=== PATIENT | female | born 1940 | race Caucasian/White ===

== ENCOUNTER 2017-02-12 16:13 | Emergency (ER) | payer MEDICARE, OTHER ==
[~2017-02-12] VITALS: Ht 160 cm; Wt 64.5 kg
[~2017-02-12 16:13] MED LIST: ACET1TAB40 PO; ALBU8.5H3 INH; ANAS1TAB PO; BUDE6HFA INHALATION; CALC500T12 PO; CHOL100062 PO; DOXA1TAB PO; ESOM40CA PO; FAMO-18 PO; FLUT9.9S NASAL; HYD25 PO; IBUP400T22 PO; LORA1TAB PO; MECL-77 PO; MELO-110 PO; METH10TA2 PO; NAPR-260 PO
[2017-02-12 16:29] VITALS: Ht 160 cm; Wt 64.5 kg
[2017-02-12] MEDS ORDERED: NAPR-688 PO (17:02)
--- NOTE | 2017-02-12 17:04 | ERD ---
ER Documentation Chief Complaint Date/Time DATE: 02/12/17 TIME: 17:03 Chief Complaint pedersen, facial numbness HPI 76-year-old woman complains of paresthesias to the right side of face 2 days. She denies headache or blurry vision, no weakness in her arms or legs, no chest pain or shortness of breath. Patient denies trauma. ROS All systems reviewed and are negative except as per history of present illness. Medications Home Meds Active Scripts Naproxen* (Naproxen*) 500 Mg Tablet, 500 MG PO BID Y for PAIN AND/OR INFLAMMATION, #30 TAB Prov:JOSUE JACKOSN MD 02/12/17 Hydrochlorothiazide* (Hydrochlorothiazide*) 25 Mg Tab, 25 MG PO DAILY, #30 TAB Prov:PURVI PURDY DO 12/20/15 Reported Medications Fluticasone Propionate (Flonase Allergy Relief) 9.9 Ml [place].susp, 1 SPRAY NASAL BID, #1 BOTTLE TO EACH NOSTRIL 02/12/17 Docusate Sodium* (Docusate Sodium*) 100 Mg Capsule, 100 MG PO BID Y for CONSTIPATION, #60 CAP 02/12/17 Metoprolol Succinate* (Toprol XL*) 25 Mg Tab.sr.24h, 25 MG PO DAILY, #30 TAB 02/12/17 Cholecalciferol* (Vitamin D3*) 1,000 Unit Tablet, 1000 UNIT PO DAILY, TAB 12/20/15 Calcium Carbonate* ([place]-500*) 1 Tab Tablet, 1 TAB PO BID, TAB 12/20/15 Meloxicam* (Mobic*) 15 Mg Tablet, 15 MG PO DAILY, #30 TAB 12/20/15 Fluticasone Propionate (Flonase Allergy Relief) 9.9 Ml [place].susp, 1 SPRAY NASAL DAILY, #1 BOTTLE TO EACH NOSTRIL 08/27/15 Anastrozole* (Arimidex*) 1 Mg Tablet, 1 MG PO DAILY, #30 TAB 08/27/15 Discontinued Reported Medications Methadone Hcl* (Methadone*) 10 Mg Tab, 60 MG PO DAILY, TAB 03/09/16 Meclizine Hcl* (Meclizine Hcl*) 25 Mg Tablet, 25 MG PO DIZZINESS, TAB 12/20/15 Doxazosin Mesylate* (Doxazosin Mesylate*) 1 Mg Tablet, 1 MG PO HS, TAB 12/20/15 Albuterol Sulfate* (Proair HFA*) 8.5 Gm Hfa.aer.ad, 2 PUFF INH Q4H Y for WHEEZING AND SOB, #1 INHALER 12/20/15 Esomeprazole Mag Trihydrate (Nexium) 40 Mg Capsule.dr, 40 MG PO DAILY, #30 08/27/15 Lorazepam* (Lorazepam*) 1 Mg Tablet, 1 MG PO HS Y for INSOMNIA, #30 TAB 08/27/15 Budesonide-Formoterol Fumarate* (Symbicort*) 160-4.5 Hfa.aer.ad, 2 PUFF INHALATION BID, #1 EACH 08/27/15 Discontinued Scripts Ibuprofen* (Motrin*) 400 Mg Tab, 400 MG PO Q6H Y for PAIN AND OR ELEVATED TEMP, #20 TAB Prov:JAMEL LIU NP 03/09/16 Naproxen* (Naprosyn*) 500 Mg Tablet, 500 MG PO BID Y for PAIN AND/OR INFLAMMATION, #30 TAB Prov:JOSUE JACKSON MD 10/02/15 Acetaminophen-Codeine* (Acetaminophen-Cod #3*) 300-30 Mg Tab, 1 TAB PO Q4H Y for PAIN, #14 TAB Prov:ERIC MAYO MD 09/06/15 Famotidine* (Pepcid*) 20 Mg Tablet, 20 MG PO BID, #30 TAB Prov:ERIC MAYO MD 09/06/15 Allergies Allergies: Coded Allergies: Penicillins (Unverified Allergy, Mild, rash, 02/12/17) PMhx/Soc Chronic pain syndrome, chronic dizziness, anemia, dyslipidemia, asthma History of Surgery: Yes (C SECTION , left breast biopsy and lymphnodectomy 11/03 ) Anesthesia Reaction: No Hx Neurological Disorder: No Hx Respiratory Disorders: Yes (ASTHMA) Hx Cardiac Disorders: Yes (HIGH CHOLESTEROL ) Hx Psychiatric Problems: No Hx Miscellaneous Medical Probl: Yes (VERICOSE VEINS, lower right abdominal hernia ) Hx Alcohol Use: No Hx Substance Use: No Hx Tobacco Use: Yes (2-3 cigarettes/ day) Smoking Status: Never smoker FmHx Family History: No diabetes Physical Exam Vitals Vital Signs Date Time Temp Pulse Resp B/P Pulse Ox O2 Delivery O2 Flow Rate FiO2 02/12/17 17:45 76 18 108/60 97 02/12/17 16:29 98.1 78 18 111/64 97 Physical Exam GENERAL: Well-developed, well-nourished, well-hydrated, in no apparent distress , looks nontoxic in appearance HEENT: Moist mucous membranes, pink conjunctiva, no cervical spine tenderness or step-off deformities, no goiter, no jaundice or icterus, extraocular movements intact without pain. No submandibular induration, and no pharyngeal erythema NEURO: Alert and oriented 3, cranial nerves II through XII intact bilaterally, pupils equal round reactive to light, no focal deficits or facial asymmetry, sensation intact distally Strength 5/5 in upper and lower extremities bilaterally CARDIAC: Regular rate and rhythm, no murmurs rubs or gallops LUNGS: Clear bilaterally no wheezing crackles or stridor ABDOMEN: Soft nontender, no guarding, no rigidity, no rebound, no psoas sign no obturator sign. Normoactive bowel sounds SKIN: Warm and dry to touch, no abrasions, contusions, or hematomas, no lacerations, no ecchymosis, no target lesions, and without ulcers EXTREMITIES: No clubbing cyanosis or edema, calves are bilaterally symmetrical, no Homans sign, no popliteal cord sign. Distal pulses equal and bilateral PSYCH: Normal affect without agitation or irritability Procedures/MDM Patient was placed on pmo consultant rhythm strip revealed a sinus rhythm at about 70 bpm with upright P and T waves. Patient was afebrile. I provided reassurance to the patient regarding her paresthesias including over the scalp and right face. Her neurologic exam was completely normal here including distal sensation and motor exam. I ordered CT scan of the brain although patient could not wait and decided to leave the emergency department AGAINST MEDICAL ADVICE despite my and the nurses insistence. Differential diagnoses considered, included but not limited to acute coronary syndrome, pulmonary embolism, aortic dissection, abdominal aortic aneurysm, sepsis, stroke, meningitis, encephalitis, pneumonia, appendicitis, cholecystitis , bowel obstruction, pyelonephritis, nephrolithiasis, cystitis, as well as metabolic, hematologic, and electrolyte abnormalities. As well as abscess, cellulitis, fractures, and dislocations. Departure Diagnosis: Primary Impression: Facial paresthesia Additional Impression: Left against medical advice Condition: Serious Patient Instructions: JOSUE Khan MD Feb 12, 2017 17:04
[2017-02-12] MEDS ORDERED: DOCU-159 PO (17:35)
[2017-02-12] MEDS ORDERED: FLUT9.9S NASAL (17:35)
[2017-02-12] MEDS ORDERED: METO25TA7 PO (17:35)
[2017-02-12 17:45] VITALS: BP 108/60; PULSE 76; RESP 18
== END 2017-02-12 18:14 | disposition left against medical advice (07) ==
LOC: E/R 16:13
DX: R20.2 Paresthesia of skin (principal); J45.909 Unspecified asthma, uncomplicated; Z87.891 Personal history of nicotine dependence
CPT/HCPCS: 99283

== ENCOUNTER 2017-02-13 16:06 | Emergency (ER) | payer MEDICARE, OTHER ==
[~2017-02-13] VITALS: Ht 152.4 cm; Wt 64.5 kg
[~2017-02-13 16:06] MED LIST changes: -ACET1TAB40 PO; -ALBU8.5H3 INH; -BUDE6HFA INHALATION; +DOCU-159 PO; -DOXA1TAB PO; -ESOM40CA PO; -FAMO-18 PO; -IBUP400T22 PO; -LORA1TAB PO; -MECL-77 PO; -METH10TA2 PO; +METO25TA7 PO; -NAPR-260 PO; +NAPR-688 PO
[2017-02-13 16:17] VITALS: Ht 152.4 cm; Wt 64.5 kg
--- NOTE | 2017-02-13 17:37 | RADRPT ---
PROCEDURE: CT Brain without contrast. CLINICAL INDICATION: Paresthesia TECHNIQUE: A CT of the brain was performed on a [employer] 64-slice CT scanner utilizing axial imaging from the skull base through the vertex without IV contrast. Multiplanar reformatted images were made. Images were reviewed on a PACS workstation. The CTDIvol is 44.3 mGy and the DLP is 720 mGycm. COMPARISON: March 09, 2016 FINDINGS: There is no intracranial hemorrhage, mass effect, or midline shift. No extra-axial fluid collection is seen. There is cerebral volume loss with prominence of the cerebral sulci and lateral ventricles . [place]-white matter differentiation is preserved. The visualized paranasal sinuses and osseous struc tures are grossly unremarkable. IMPRESSION: 1. No evidence of acute intracranial pathology. 2. Stable diffuse cerebral volume loss. Physician Shashi Date Time Electronically viewed and signed by Physician Shashi on 02/13/2017 17:36 ML/
--- NOTE | 2017-02-13 18:33 | ERD ---
ER Documentation Chief Complaint Date/Time DATE: 02/13/17 TIME: 18:28 Chief Complaint [address] for [address], c/o same, facial umbness, pedersen x 3 days HPI 76-year-old female with a history of hypertension, breast cancer on Arimidex, chronic pain and opiate dependence presents the ED complaining of a 3 day history of right-sided facial numbness which seems to be improving. She was seen in the ED yesterday for similar symptoms but did not want to wait for a CT brain and now returns for the imaging study. Denies headache, visual changes or focal weakness. Denies chest pain or palpitations. No shortness of breath or cough. No abdominal pain, nausea vomiting. No fevers or chills. ROS All systems reviewed and are negative except as per history of present illness. Medications Home Meds Active Scripts Naproxen* (Naproxen*) 500 Mg Tablet, 500 MG PO BID Y for PAIN AND/OR INFLAMMATION, #30 TAB Prov:JOSUE JACKSON MD 02/12/17 Hydrochlorothiazide* (Hydrochlorothiazide*) 25 Mg Tab, 25 MG PO DAILY, #30 TAB Prov:PURVI PURDY DO 12/20/15 Reported Medications Fluticasone Propionate (Flonase Allergy Relief) 9.9 Ml [place].susp, 1 SPRAY NASAL BID, #1 BOTTLE TO EACH NOSTRIL 02/12/17 Docusate Sodium* (Docusate Sodium*) 100 Mg Capsule, 100 MG PO BID Y for CONSTIPATION, #60 CAP 02/12/17 Metoprolol Succinate* (Toprol XL*) 25 Mg Tab.sr.24h, 25 MG PO DAILY, #30 TAB 02/12/17 Cholecalciferol* (Vitamin D3*) 1,000 Unit Tablet, 1000 UNIT PO DAILY, TAB 12/20/15 Calcium Carbonate* ([place]-500*) 1 Tab Tablet, 1 TAB PO BID, TAB 12/20/15 Meloxicam* (Mobic*) 15 Mg Tablet, 15 MG PO DAILY, #30 TAB 12/20/15 Anastrozole* (Arimidex*) 1 Mg Tablet, 1 MG PO DAILY, #30 TAB 08/27/15 Discontinued Reported Medications Fluticasone Propionate (Flonase Allergy Relief) 9.9 Ml [place].susp, 1 SPRAY NASAL DAILY, #1 BOTTLE TO EACH NOSTRIL 08/27/15 Methadone Hcl* (Methadone*) 10 Mg Tab, 60 MG PO DAILY, TAB 03/09/16 Meclizine Hcl* (Meclizine Hcl*) 25 Mg Tablet, 25 MG PO DIZZINESS, TAB 12/20/15 Doxazosin Mesylate* (Doxazosin Mesylate*) 1 Mg Tablet, 1 MG PO HS, TAB 12/20/15 Albuterol Sulfate* (Proair HFA*) 8.5 Gm Hfa.aer.ad, 2 PUFF INH Q4H Y for WHEEZING AND SOB, #1 INHALER 12/20/15 Esomeprazole Mag Trihydrate (Nexium) 40 Mg Capsule.dr, 40 MG PO DAILY, #30 08/27/15 Lorazepam* (Lorazepam*) 1 Mg Tablet, 1 MG PO HS Y for INSOMNIA, #30 TAB 08/27/15 Budesonide-Formoterol Fumarate* (Symbicort*) 160-4.5 Hfa.aer.ad, 2 PUFF INHALATION BID, #1 EACH 08/27/15 Discontinued Scripts Ibuprofen* (Motrin*) 400 Mg Tab, 400 MG PO Q6H Y for PAIN AND OR ELEVATED TEMP, #20 TAB Prov:JAMEL LIU NP 03/09/16 Naproxen* (Naprosyn*) 500 Mg Tablet, 500 MG PO BID Y for PAIN AND/OR INFLAMMATION, #30 TAB Prov:JOSUE JACKSON MD 10/02/15 Acetaminophen-Codeine* (Acetaminophen-Cod #3*) 300-30 Mg Tab, 1 TAB PO Q4H Y for PAIN, #14 TAB Prov:ERIC MAYO MD 09/06/15 Famotidine* (Pepcid*) 20 Mg Tablet, 20 MG PO BID, #30 TAB Prov:ERIC MAYO MD 09/06/15 Allergies Allergies: Coded Allergies: Penicillins (Unverified Allergy, Mild, rash, 02/13/17) PMhx/Soc Reviewed in chart. As per HPI. History of Surgery: Yes (C SECTION , left breast biopsy and lymphnodectomy 11/03 ) Anesthesia Reaction: No Hx Neurological Disorder: No Hx Respiratory Disorders: Yes (ASTHMA) Hx Cardiac Disorders: Yes (HIGH CHOLESTEROL ) Hx Psychiatric Problems: No Hx Miscellaneous Medical Probl: Yes (VERICOSE VEINS, lower right abdominal hernia ) Hx Alcohol Use: No Hx Substance Use: No Hx Tobacco Use: Yes (2-3 cigarettes/ day) Smoking Status: Current every day smoker FmHx Coronary artery disease/NH but no stroke or cancer. Physical Exam Vitals Vital Signs Date Time Temp Pulse Resp B/P Pulse Ox O2 Delivery O2 Flow Rate FiO2 02/13/17 16:17 97.9 78 18 114/59 99 Physical Exam Const: Alert, NAD Head: Atraumatic Eyes: Normal Conjunctiva ENT: Normal External Ears, Nose and Mouth. Neck: Full range of motion. Nontender. Carotids 2+ bilaterally without bruit Resp: BS equal and clear to auscultation bilaterally Cardio: Regular rate and rhythm, no murmurs Abd: Soft, non tender, non distended. Normal bowel sounds Skin: No petechiae or rashes Back: No midline or flank tenderness Ext: No cyanosis, or edema Neur: Awake and alert. Cranial nerves II through XII are grossly intact. Motor and sensory equal bilaterally. Gait is stable but she walks with a cane chronically. Psych: Normal Mood and Affect Results 24 hrs IMAGING: PROCEDURE: CT Brain without contrast. CLINICAL INDICATION: Paresthesia TECHNIQUE: A CT of the brain was performed on a [place] 64-slice CT scanner utilizing axial imaging from the skull base through the vertex without IV contrast. Multiplanar reformatted images were made. Images were reviewed on a PACS workstation. The CTDIvol is 44.3 mGy and the DLP is 720 mGycm. COMPARISON: March 09, 2016 FINDINGS: There is no intracranial hemorrhage, mass effect, or midline shift. No extra- axial fluid collection is seen. There is cerebral volume loss with prominence of the cerebral sulci and lateral ventricles. [place]-white matter differentiation is preserved. The visualized paranasal sinuses and osseous structures are grossly unremarkable. IMPRESSION: 1. No evidence of acute intracranial pathology. 2. Stable diffuse cerebral volume loss. Physician Shashi Date Time Electronically viewed and signed by Physician Shashi on 02/13/2017 17 :36 ML/ Procedures/MDM DOCUMENTS REVIEWED: ED nurse, prior ED, prior MEDICAL DECISION MAKIN-year-old female with a history of hypertension, breast cancer on Arimidex, chronic pain and opiate dependence presents the ED complaining of a 3 day history of right-sided facial numbness. No focal neurologic deficit and CT is negative for bleed, infarct, mass or hydrocephalus. Urgent follow-up is indicated and further advanced imaging including MRI may be necessary to further delineate this process. A supratentorial etiology is considered. Patient is advised to take a baby aspirin daily. She is stable for discharge precautionary instructions and outpatient follow-up as counseled. Counseled patient regarding diagnostic workup, diagnosis and need for followup. Understands to return to ED if symptoms recur, worsen or any other concerns. Departure Diagnosis: Primary Impression: Paresthesias CHIOMA COKER MD Feb 13, 2017 18:33
== END 2017-02-13 18:34 | disposition home or self-care (01) ==
LOC: E/R 16:06
DX: R20.2 Paresthesia of skin (principal); I10 Essential (primary) hypertension; J45.909 Unspecified asthma, uncomplicated; F17.210 Nicotine dependence, cigarettes, uncomplicated; Z85.3 Personal history of malignant neoplasm of breast
CPT/HCPCS: 70450

== ENCOUNTER 2017-03-07 14:07 | Emergency (ER) | payer MEDICARE, OTHER ==
[~2017-03-07] VITALS: Wt 64.0 kg
== END 2017-03-07 17:07 | disposition left against medical advice (07) ==
LOC: E/R 14:07
DX: Z53.21 Procedure and treatment not carried out due to patient leaving prior to being seen by health care provider (principal)

== ENCOUNTER 2017-09-11 12:01 | Emergency (ER) | END 2017-09-11 13:30 | disposition left against medical advice (07) ==

== ENCOUNTER 2017-10-25 11:32 | Emergency (ER) | END 2017-10-25 19:30 | disposition left against medical advice (07) ==

== ENCOUNTER 2018-01-27 14:06 | Emergency (ER) | END 2018-01-27 16:39 | disposition home or self-care (01) ==

== ENCOUNTER 2018-10-05 12:20 | Emergency (ER) | payer MEDICARE, OTHER ==
[~2018-10-05] VITALS: Ht 157.5 cm; Wt 70.5 kg
[~2018-10-05 12:20] MED LIST changes: -HYD25 PO; +HYDR25TA6 PO; -MELO-110 PO; +MELO15TA30 PO; +METO-335 PO; -METO25TA7 PO
[2018-10-05 12:52] VITALS: BP 119/59; PULSE 67; RESP 26; Ht 157.5 cm; Wt 70.5 kg
[2018-10-06] MEDS ORDERED: HYDR25TA6 PO (18:32)
[2018-10-06] MEDS ORDERED: METO-335 PO (18:32)
[2018-10-06] MEDS ORDERED: ESOM40CA PO (18:33)
[2018-10-06] MEDS ORDERED: LORA-444 PO (18:33)
[2018-10-06] MEDS ORDERED: FLUT16SP17 NASAL (18:34)
[2018-10-06] MEDS ORDERED: FLUT1AER INHALATION (18:35)
== END 2018-10-05 21:01 | disposition left against medical advice (07) ==
LOC: FTE 12:20
DX: Z53.21 Procedure and treatment not carried out due to patient leaving prior to being seen by health care provider (principal)

== ENCOUNTER 2018-10-06 17:24 | Emergency (ER) | payer MEDICARE, OTHER ==
[~2018-10-06] VITALS: Ht 165.1 cm; Wt 75.0 kg
[2018-10-06] MEDS ORDERED: NITROGLYCERIN 2% 1 GM OINT PKT TD STA (17:29)
[2018-10-06] MEDS ORDERED: NITROGLYCERIN (SL) 0.4 MG TAB SL PRN (17:30)
[2018-10-06 17:54] VITALS: Ht 165.1 cm; Wt 75.0 kg
[2018-10-06] MEDS ORDERED: HYDR25TA6 PO (18:32)
[2018-10-06] MEDS ORDERED: METO-335 PO (18:32)
[2018-10-06] MEDS ORDERED: ESOM40CA PO (18:33)
[2018-10-06] MEDS ORDERED: LORA-444 PO (18:33)
[2018-10-06] MEDS ORDERED: FLUT16SP17 NASAL (18:34)
[2018-10-06] MEDS ORDERED: FLUT1AER INHALATION (18:35)
--- NOTE | 2018-10-06 18:50 | ERD ---
ER Documentation Chief Complaint Chief Complaint SOB x 4 days; no cough, CP en route to ER HPI Patient is a 77-year-old female with COPD who presents with shortness of breath. The patient was brought in by ambulance. She has had shortness of breath for the past 5 days. She also complains of chest pain which is left-sided and she rates as a 2 out of 10. She was given aspirin and nitroglycerin by paramedics. She says the pain radiates into her neck. ROS All systems reviewed and are negative except as per history of present illness. Medications Home Meds Reported Medications Fluticasone-Vilanterol (Breo Ellipta Inhaler) 100-25 Mcg/Actuation Aer.pow.ba, 1 PUFF INHALATION DAILY, #1 INHALER 10/06/18 Fluticasone Propionate* (Fluticasone Propionate* Nasal) 50 Mcg/[place] - 16 Gm [place].susp, 1 SPRAY NASAL DAILY, #1 BOTTLE TO EACH NOSTRIL 10/06/18 Lorazepam* (Ativan*) 2 Mg Tablet, 2 MG PO HS PRN for ANXIETY, #30 TAB 10/06/18 Esomeprazole Mag Trihydrate (Nexium) 40 Mg Capsule.dr, 40 MG PO DAILY, #30 CAP 10/06/18 Metoprolol Succinate* (Toprol XL*) 25 Mg Tab.sr.24h, 25 MG PO BID, #30 TAB 10/06/18 Hydrochlorothiazide* (Hydrochlorothiazide*) 25 Mg Tab, 25 MG PO DAILY, #30 TAB 10/06/18 Discontinued Reported Medications Fluticasone Propionate (Flonase Allergy Relief) 9.9 Ml [place].susp, 1 SPRAY NASAL BID, #1 BOTTLE TO EACH NOSTRIL 02/12/17 Docusate Sodium* (Docusate Sodium*) 100 Mg Capsule, 100 MG PO BID PRN for CONSTIPATION, #60 CAP 02/12/17 Metoprolol Succinate* (Toprol XL*) 25 Mg Tab.sr.24h, 25 MG PO DAILY, #30 TAB 02/12/17 Cholecalciferol* (Vitamin D3*) 1,000 Unit Tablet, 1000 UNIT PO DAILY, TAB 12/20/15 Calcium Carbonate* ([place]-500*) 1 Tab Tablet, 1 TAB PO BID, TAB 12/20/15 Meloxicam* (Mobic*) 15 Mg Tablet, 15 MG PO DAILY, #30 TAB 12/20/15 Anastrozole* (Arimidex*) 1 Mg Tablet, 1 MG PO DAILY, #30 TAB 08/27/15 Discontinued Scripts Naproxen* (Naproxen*) 500 Mg Tablet, 500 MG PO BID PRN for PAIN AND/OR INFLAMMATION, #30 TAB Prov:JOSUE JACKSON MD 02/12/17 Hydrochlorothiazide* (Hydrochlorothiazide*) 25 Mg Tab, 25 MG PO DAILY, #30 TAB Prov:PURVI PURDY DO 12/20/15 Allergies Allergies: Coded Allergies: Penicillins (Unverified Allergy, Mild, rash, 10/06/18) PMhx/Soc History of Surgery: Yes (C SECTION , left breast biopsy and lymphnodectomy 11/03, gallstones ) Anesthesia Reaction: No Hx Neurological Disorder: No Hx Respiratory Disorders: Yes (ASTHMA) Hx Cardiac Disorders: Yes (HIGH CHOLESTEROL ) Hx Psychiatric Problems: No Hx Miscellaneous Medical Probl: Yes (VERICOSE VEINS, lower right abdominal hernia ) Hx Alcohol Use: No Hx Substance Use: No Hx Tobacco Use: Yes (2-3 cigarettes/ day) FmHx Family History: coronary disease Physical Exam Vitals Vital Signs Date Temp Pulse Resp B/P (MAP) Pulse Ox O2 O2 Flow FiO2 Time Delivery Rate 10/06/18 98.5 73 12 132/79 93 17:54 (96) Physical Exam Const: No acute distress Head: Atraumatic Eyes: Normal Conjunctiva ENT: Normal External Ears, Nose and Mouth. Neck: Full range of motion. No meningismus. Resp: Clear to auscultation bilaterally Cardio: Regular rate and rhythm, no murmurs Abd: Soft, non tender, non distended. Normal bowel sounds Skin: No petechiae or rashes Back: No midline or flank tenderness Ext: No cyanosis, or edema Neur: Awake and alert Psych: Normal Mood and Affect Result Diagram: 10/06/180 10/06/181749 Results 24 hrs Laboratory Tests Test 10/06/18 17:50 White Blood Count 3.6 10^3/ul Red Blood Count 4.10 10^6/ul Hemoglobin 12.0 g/dl Hematocrit 37.2 % Mean Corpuscular Volume 90.7 fl Mean Corpuscular Hemoglobin 29.3 pg Mean Corpuscular Hemoglobin Concent 32.3 g/dl Red Cell Distribution Width 12.8 % Platelet Count 156 10^3/UL Mean Platelet Volume 10.4 fl Immature Granulocytes % 0.300 % Neutrophils % 54.7 % Lymphocytes % 26.0 % Monocytes % 14.2 % Eosinophils % 4.2 % Basophils % 0.6 % Nucleated Red Blood Cells % 0.0 /100WBC Immature Granulocytes # 0.010 10^3/ul Neutrophils # 2.0 10^3/ul Lymphocytes # 0.9 10^3/ul Monocytes # 0.5 10^3/ul Eosinophils # 0.2 10^3/ul Basophils # 0.0 10^3/ul Nucleated Red Blood Cells # 0.0 10^3/ul Sodium Level 136 mmol/L Potassium Level 4.1 mmol/L Chloride Level 96 mmol/L Carbon Dioxide Level 32 mmol/L Anion Gap 8 Blood Urea Nitrogen 25 mg/dl Creatinine 1.41 mg/dl Est Glomerular Filtrat Rate mL/min mL/min Glucose Level 98 mg/dl Calcium Level 9.8 mg/dl Troponin I < 0.012 ng/ml Current Medications Medications Dose Sig/Barb Start Time Status Last (Trade) Ordered Route PRN Stop Time Admin Dose Reason Admin 1 inch ONCE STAT 10/06/18 DC Nitroglycerin TD 17:29 10/06/18 17:30 (Nitroglyceri n 2% Oint) 1 tab Q5M UP TO 3 10/06/18 Nitroglycerin DOSES PRN 17:30 SL .CHEST (Nitroglyceri PAIN n (Sl Tab) 0.4 Mg) Ondansetron 4 mg ER BRIDGE 10/06/18 HCl (Zofran PRN IV 19:00 Inj) NAUSEA/VOMITI 10/07/18 18:59 NG 650 mg ER BRIDGE 10/06/18 Acetaminophen PRN PO 19:00 (Tylenol .MILD PAIN 10/07/18 18:59 Tab) 1-3 OR TEMP Procedures/MDM EKG read by me: Rate/Rhythm: Regular rate and rhythm at a rate of 73 Intervals: Normal Impression: No evidence of ischemia or arrhythmia Chest X-ray 1V Interpreted by me: Soft Tissue: No acute abnormalities Bones: No acute abnormalities Mediastinum/Cardiac Silhouette/Lungs: Hilar fullness bilaterally Smoking Cessation Therapy: Pt. was lectured for greater than 3 minutes on the health risks of continued smoking and the benefits of cessation. Patient is a 77-year-old female with COPD, family history of coronary disease, a nd smoking who presents with chest pain or shortness of breath. I am concerned for potential acute coronary syndrome. I doubt pneumonia, pneumothorax, pulmonary embolism, or aortic dissection. The patient was given aspirin and nitroglycerin by paramedics. Patient will be admitted to a telemetry observation bed. Initial troponin is negative. Departure Diagnosis: Primary Impression: Shortness of breath Additional Impression: Chest pain Chest pain type: unspecified Qualified Codes: R07.9 - Chest pain, unspecified Condition: SAÚL Sauceda MD Oct 06, 2018 18:50
[2018-10-06] MEDS ORDERED: ACETAMINOPHEN 325 MG TAB PO PRN (19:00)
[2018-10-06] MEDS ORDERED: ONDANSETRON 4 MG INJ IV PRN (19:00)
[2018-10-06 20:11] VITALS: BP 114/74; PULSE 70; RESP 16
== END 2018-10-06 20:20 | disposition left against medical advice (07) ==
LOC: E/R 17:24 → CANBEDREQ 10-07 14:04
DX: R06.02 Shortness of breath (principal); R07.9 Chest pain, unspecified; J45.909 Unspecified asthma, uncomplicated; F17.210 Nicotine dependence, cigarettes, uncomplicated
CPT/HCPCS: 36415; 71045; 80048; 84484; 85025